=== PATIENT | male | born 1995 | race Caucasian/White ===

== ENCOUNTER → 2019-01-27 | Outpatient (CLI) | payer OTHER ==
--- NOTE | 2019-01-27 14:25 | Diagnostic Imaging Report ---
INDICATION: Enlarged right cervical lymph node for several months. COMPARISON: No prior studies are available for comparison. FINDINGS: Sonographic interrogation of the right neck was performed. There is a hypoechoic mass in the right neck measuring 3.9 x 2.1 x 1.4 cm. This may represent an enlarged lymph node. This is just lateral to the right submandibular gland. No fluid collection is seen. IMPRESSION: Probable right neck lymphadenopathy. Further evaluation with CT soft tissue neck with contrast would be recommended for better characterization. Dictated by: Dictated on workstation # [id number]
== END ==
LOC: RAD 13:48
PROVIDERS: ATTEND Family Medicine
DX: R59.0 Localized enlarged lymph nodes (principal)
CPT/HCPCS: 76536

== ENCOUNTER → 2019-02-02 | Outpatient (CLI) | payer OTHER ==
[~2019-02-02] MED LIST: CATHETER FLUSH 10 ML SYR IV PRN; HOLD METFORMIN - RECEIVED CONTRAST 20 ML VIAL IV SCH; IOHEXOL 350 MG/ML 100 ML (OMNIPAQUE 350) VIAL IV ONE; NS 100 ML (IVPB) BAG IV ONE
--- NOTE | 2019-02-02 18:30 | Diagnostic Imaging Report ---
PROCEDURE: CT neck soft tissue with contrast. TECHNIQUE: Multiple contiguous axial images were obtained through the neck after the administration of contrast. Auto Exposure Controls were utilized during the CT exam to meet ALARA standards for radiation dose reduction. INDICATION: Right neck mass. Correlation made with ultrasound 01/27/2019. FINDINGS: The visualized intracranial contents is unremarkable without mass effect or abnormal enhancement. The mastoids appear clear. The paranasal sinuses demonstrate mild mucosal thickening in the right maxillary sinus. There appear to be prior surgical changes of right internal ethmoidectomies. There is no air-fluid level. The orbital contents appear unremarkable. The posterior nasopharynx and oropharynx appear appropriately symmetric. There is no displacement of the paravertebral fat planes. There are no findings of an abnormal process within the prevertebral or retropharyngeal space. Base of the tongue symmetric. There is no thickening of the epiglottis. The vallecula and piriform sinuses are aerated. The vocal folds appear symmetric. The parotid and the submandibular glands appear unremarkable. The thyroid is unremarkable. There are mildly prominent bilateral level 2 cervical lymph nodes. There also are scattered small lymph nodes demonstrated within the posterior triangle at level 5 as well as some level 3 lymph nodes. The largest measurable lymph node is 2.0 x 1.0 cm on the right just posterior to the right submandibular gland. There is no correlate to the size of the reported lymph node on previous ultrasound and the ultrasound may have been imaging portions of the sternocleidomastoid muscle belly. The lung apices appear clear. Vascular structures of the neck are unremarkable. Cervical spine alignment is normal. IMPRESSION: 1. Normal symmetry of the aerodigestive tract. 2. Small scattered bilateral level 2, 3, and 5 cervical lymph nodes. These do not appear pathologically enlarged by CT criteria. 3. There is no CT correlate of the measured mass or lymph node on prior ultrasound. At the location annotated on the prior examination posterior to the right submandibular gland, it is possible that these measurements were measurements of a portion of the muscle belly of the sternocleidomastoid muscle. There are no lymph nodes evident that measure up to 3.9 cm. Dictated by: Dictated on workstation # [id number]
== END ==
LOC: RAD 17:33
DX: R22.1 Localized swelling, mass and lump, neck (principal); Z98.890 Other specified postprocedural states
CPT/HCPCS: 70491